=== PATIENT | female | born 1950 | race Caucasian/White ===

== ENCOUNTER 2017-01-15 20:46 | Emergency (ER) | payer OTHER ==
[~2017-01-15] VITALS: Ht 157.5 cm; Wt 104.3 kg
[2017-01-15 20:48] VITALS: BP 158/79
[2017-01-15] MEDS ORDERED: HYDROmorphone PF 1 MG/ML DISP.SYRIN IM ONE (21:15)
[2017-01-15] MEDS ORDERED: CYCLOBENZAPRINE 10 MG TABLET. PO ONE (21:15)
[2017-01-15] MEDS ORDERED: KETOROLAC 30 MG/ML VIAL. IM ONE (21:15)
[2017-01-15] MEDS ORDERED: ONDANSETRON ODT 4 MG TAB.RAPDIS PO ONE (21:15)
[2017-01-15] MEDS ORDERED: HYDR-971 PO (21:19)
[2017-01-15] MEDS ORDERED: IBUP600T16 PO (21:19)
[2017-01-15] MEDS ORDERED: CYCL-331 PO (21:19)
--- NOTE | 2017-01-15 21:19 | PHYS DOC ---
Adult General Chief Complaint Chief Complaint: BACK INJURY HPI HPI Patient is a 66-year-old female who presents here today complaining of lower back pain. Patient reports that she fell stepping off the step stool and landed on her buttocks and now she's got lower back pain. Patient has a history of hypertension. Patient has any diabetes liver longer kidney or heart problems. Patient is allergic to codeine. Patient denies any head trauma or loss of consciousness. Patient has any weakness to her upper or lower extremities. Patient denies any numbness or paresthesias. Patient has a loss of bowel or bladder function. Patient reports that EMS arrived her house however she declined transfer. Patient reports that she has been and bleeding and was transferred here by private vehicle. Review of systems: Constitutional: Denies fever or chills Eyes: Denies change in visual acuity, redness, or eye pain HENT: Denies nasal congestion or sore throat All other review systems are negative except as documented in the history of present illness portion. Physical exam: Constitutional: Well developed, well nourished, no acute distress, non-toxic appearance. HENT: Normocephalic, atraumatic, bilateral external ears normal, oropharynx moist, no oral exudates, nose normal. Eyes: PERRLA, EOMI, conjunctiva normal, no discharge. Neck: Normal range of motion, no tenderness, supple, no stridor. Cardiovascular:Heart rate regular rhythm, Lungs & Thorax: Bilateral breath sounds clear to auscultation Abdomen: Bowel sounds normal, soft, no tenderness, no masses, no pulsatile masses. Skin: Warm, dry, no erythema, no rash. Back: Patient was tenderness palpation to her lower back. Patient has no point C -spine T-spine or L-spine tenderness. Patient has diffuse lower back discomfort. Patient is neurologically intact. Patient's alert awake oriented 3. Patient is a bleeding without discomfort. Extremities: No tenderness, no cyanosis, no clubbing, ROM intact, no edema. Neurologic: Alert and oriented X 3, normal motor function, normal sensory function, no focal deficits noted. Psychologic: Affect normal, judgement normal, mood normal. Lumbosacral spine x-ray: No evidence of acute fracture interpreted by COLLEEN Snell Assessment and plan This is a 58-year-old female who presents here today with lower back pain secondary to trauma and falling. Patient is clinically and hemodynamically stable. Patient has no evidence of neurological deficits. Patient's x-ray does not reveal any evidence of acute fracture. Patient will be discharged home with adequate analgesia. Patient was given a shot of Dilaudid Toradol and Flexeril here in the ER we'll be discharged home with Motrin and Lortab and Flexeril to assist her with her pain. Patient will be instructed to follow-up with her primary care physician in one to 2 days for reevaluation of her pain at the symptoms are not completely resolved. Current Medications Current Medications Current Medications Medications (Trade) Dose Ordered Sig/Eli Start Time Stop Time Status Last Admin Dose Admin Cyclobenzaprine HCl (Flexeril) 10 mg 1X ONCE 01/15/17 21:15 01/15/17 21:16 Hydromorphone HCl (Dilaudid) 1 mg 1X ONCE 01/15/17 21:15 01/15/17 21:16 Ketorolac Tromethamine (Toradol) 30 mg 1X ONCE 01/15/17 21:15 01/15/17 21:16 Ondansetron HCl (Zofran Odt) 4 mg 1X ONCE 01/15/17 21:15 01/15/17 21:16 Allergies Allergies Allergies Coded Allergies Type Severity Reaction Last Updated Verified codeine Allergy Unknown 01/15/17 Yes EKG EKG [] Radiology/Procedures Radiology/Procedures [] Course & Med Decision Making Course & Med Decision Making Pertinent Labs and Imaging studies reviewed. (See chart for details) [] Dragon Disclaimer Dragon Disclaimer This chart was dictated in whole or in part using Voice Recognition software in a busy, high-work load, and often noisy Emergency Department environment. It may contain unintended and wholly unrecognized errors or omissions. Departure Departure: Impression: Primary Impression: Low back pain Disposition: HOME, SELF-CARE Condition: IMPROVED Referrals: FLEX STEIN MD (PCP) Patient Instructions: Low Back Sprain with Rehab-[facility], Lumbosacral Strain Scripts Hydrocodone Bit/Acetaminophen (NORCO 5-325 TABLET) 1 Each Tablet 1 TAB PO PRN Q6HRS Y for PAIN, #12 TAB 0 Refills Prov: KEYUR MONTENEGRO MD 01/15/17 Ibuprofen (IBUPROFEN) 600 Mg Tablet 600 MG PO QID Y for PAIN, #20 Prov: KEYUR MONTENEGRO MD 01/15/17 Cyclobenzaprine Hcl (CYCLOBENZAPRINE HCL) 10 Mg Tablet 1 TAB PO TID, #30 TAB Prov: KEYUR MONTENEGRO MD 01/15/17 KEYUR MONTENEGRO MD Jan 15, 2017 21:19
--- NOTE | 2017-01-16 10:11 | RAD ---
EXAM: Lumbar spine, 5 views.. HISTORY: Pain. COMPARISON: None. FINDINGS: Frontal, lateral, bilateral oblique and coned sacral views of the lumbar spine are obtained. There is minimal lumbar dextroscoliosis. There is minimal retrolisthesis of L5 on S1. There is an inferior endplate compression deformity at L1, of uncertain chronicity. There is degenerative endplate remodeling with disc space narrowing and facet arthropathy at all levels. IMPRESSION: 1. Mild inferior endplate compression deformity at L1, of uncertain chronicity. Correlate for point tenderness in this location. 2. Multilevel degenerative change throughout the lumbar spine.
== END 2017-01-15 20:55 | disposition home or self-care (01) ==
LOC: ER 20:46
DX: M54.5 Low back pain (principal); I10 Essential (primary) hypertension; Z88.5 Allergy status to narcotic agent; W19.XXXA Unspecified fall, initial encounter; Y93.89 Activity, other specified; Y99.8 Other external cause status; Y92.89 Other specified places as the place of occurrence of the external cause
CPT/HCPCS: 72110; 96372; 99284; J1170; J1885; Q0162

== ENCOUNTER → 2019-02-25 | Outpatient (CLI) | payer OTHER ==
[~2019-02-25] MED LIST: AMIO200T4 PO; APIX5TAB3 PO; ATOR20TA PO; CYCL-331 PO; DILT240C2 PO; HYDR-3165 PO; IBUP600T16 PO; LOSA50TA86 PO; SERT100T PO
--- NOTE | 2019-02-25 09:26 | CARD ---
MR#: [id number] Date of Study: 02/25/2019 Ordering Physician: HEATHER NUÑEZ, Referring Physician: HEATHER NUÑEZ, Tech: Janet Ruiz APPROVED REPORT EXAM: Two-dimensional and M-mode echocardiogram with Doppler and color Doppler. Other Information Quality : AverageHR: 63bpm Technically limited study due to body habitus. INDICATION Atrial Fibrillation Permanent atrial fibrillation RISK FACTORS Hypertension Hyperlipidemia 2D DIMENSIONS RVDd2.9 (2.9-3.5cm)Left Atrium(2D)4.5 (1.6-4.0cm) IVSd1.1 (0.7-1.1cm)Aortic Root(2D)3.0 (2.0-3.7cm) LVDd4.4 (3.9-5.9cm)LVOT Diameter2.1 (1.8-2.4cm) PWd0.9 (0.7-1.1cm)LVDs3.0 (2.5-4.0cm) FS (%) 30.2 %SV49.3 ml LVEF(%)57.7 (>50%) Aortic Valve AoV Peak Carlos.131.6cm/sAoV VTI29.8cm AO Peak GR.6.9mmHgLVOT Peak Carlos.96.9cm/s LVOT VTI 23.99cmAO Mean GR.4mmHg CHIKI (VMAX)2.83mh2YVO (VTI)2.85cm2 Mitral Valve MV E Wcbsaqbb975.0cm/sMV DECEL [id number] MV A Uphnpqwx51.8cm/sE/A Ratio6.1 Pulmonary Valve PV Peak Fdamdbcw24.0cm/sPV Peak Grad.4mmHg Tricuspid Valve TR P. Zhtjzyky500tn/sRAP TNQLKXZP1lnLa TR Peak Gr.37ygPoHMVT89vfYy Pulmonary Vein S1 Fqasazhl56.8cm/sD2 Ciyrzgwr43.5cm/s LEFT VENTRICLE The left ventricle is normal size. There is borderline to mild concentric left ventricular hypertroph y. The left ventricular systolic function is normal and the ejection fraction is within normal range. The Ejection Fraction is 55-60%. Wall motion consistent with conduction abnormality. Otherwise jean-pierre l wall motion. Tissue Doppler imaging reveals abnormal left ventricular diastolic dysfunction. RIGHT VENTRICLE The right ventricle is normal size. There is normal right ventricular wall thickness. The right ventr icular systolic function is normal. ATRIA The left atrium is mildly dilated. The right atrium size is normal. The interatrial septum is intact with no evidence for an atrial septal defect or patent foramen ovale as noted on 2-D or Doppler imagi ng. AORTIC VALVE The aortic valve is normal in structure and function. Doppler and Color Flow revealed no significant aortic regurgitation. There is no significant aortic valvular stenosis. MITRAL VALVE The mitral valve is normal in structure and function. There is no evidence of mitral valve prolapse. There is no mitral valve stenosis. Doppler and Color Flow revealed no mitral valve regurgitation note d. TRICUSPID VALVE The tricuspid valve is normal in structure and function. Doppler and Color Flow revealed trace tricus pid regurgitation with an estimated PAP of 41 mmHg. There is no tricuspid valve stenosis. PULMONIC VALVE The pulmonic valve is not well visualized. Doppler and Color Flow revealed trace pulmonic valvular re gurgitation. There is no pulmonic valvular stenosis. GREAT VESSELS The aortic root is normal in size. The ascending aorta is normal in size. The IVC is dilated. PERICARDIAL EFFUSION There is no evidence of significant pericardial effusion. Critical Notification Critical Value: No <Conclusion> The left ventricular systolic function is normal and the ejection fraction is within normal range. Th e Ejection Fraction is 55-60%. Wall motion consistent with conduction abnormality. Otherwise normal wall motion. Doppler and Color Flow revealed trace tricuspid regurgitation with an estimated PAP of 41 mmHg. Signed by : Heather Nuñez, Electronically Approved : 02/25/2019 09:26:17
== END | disposition home or self-care (01) ==
LOC: ECHO 07:38
PROVIDERS: ATTEND Internal Medicine Cardiovascular Disease
DX: I11.9 Hypertensive heart disease without heart failure (principal); I48.21 Permanent atrial fibrillation
CPT/HCPCS: 93306

== ENCOUNTER → 2021-01-31 | Outpatient (CLI) | payer MEDICARE ==
[~2021-01-31] MED LIST changes: -AMIO200T4 PO; +AMIO200T6 PO
--- NOTE | 2021-01-31 14:51 | RAD ---
EXAM: 1. Unilateral digital diagnostic mammography, left. 2. Left breast ultrasound. HISTORY: Indeterminate findings on screening mammography. Additional imaging is requested. TECHNIQUE: Bilateral full field digital images were obtained in CC and MLO projections. Computer-aide d detection was applied. COMPARISON: 12/23/2020. COMPOSITION: C. The breasts are heterogeneously dense, which may obscure small masses. FINDINGS: The density of concern inferiorly and laterally on the left resolves to a parenchymal appea betty on spot compression. Elsewhere, secretory and scattered calcifications are benign. There is no suspicious mammographic finding. Sonographic evaluation of the left lower breast was performed. There is no suspicious sonographic fin ding. The mammographic finding may correspond with a focally dilated duct at the 4:00 position 4.5 cm from the nipple. Images of the left axilla reveal no suspicious lymph nodes. BI-RADS CATEGORY 2: Benign. RECOMMENDATION: 1. Routine screening mammography in one year. If mammography demonstrates dense breast tissue (heterogenously dense or extremely dense, category C or D), which could hide abnormalities, and if other risk factors for breast cancer have been identifi ed, supplemental screening tests that may be suggested by the ordering physician may be of benefit. D ense breast tissue, in and of itself, is a relatively common condition. Therefore, this information i s not provided to cause undue concern, but rather to raise awareness and to promote discussion with t he referring physician regarding the presence of other risk factors, in addition to dense breast tiss ue. The results of this mammography examination is provided to the patient and referring physician. T he patient should contact their referring physician if any questions or concerns exist regarding this report. PQRS compliance statement - Patient information was entered into a reminder system with a target due date for the next mammogram. "Our facility is accredited by the [employer] Mammography [employer]." Electronically signed by: Yo Jon MD (01/31/2021 2:48 PM) [facility]
--- NOTE | 2021-01-31 16:45 | RAD ---
EXAM: Cervical spine 6 views. HISTORY: Neck pain and right upper extremity radiculopathy. COMPARISON: None. FINDINGS: Cervical alignment is maintained. Degenerative disc disease is mild at C3-4 and moderate fr om C5 through C7. No fractures are identified. There is no prevertebral soft tissue swelling. On the left, neural foraminal stenosis is moderate to severe at C6-7 and mild at C3-4, mostly from fa cet osteoarthritis. On the right, neural foraminal stenosis is moderate at C2-3, moderate to severe at C3-4, and mild mor e inferiorly. This is mostly from facet osteoarthritis. IMPRESSION: 1. Bilateral neural foraminal stenosis is moderate to severe on the right at C3-4 and on the left at C6-7, and mild to moderate elsewhere as above. 2. Degenerative disc disease is moderate from C5 through C7 and mild at C3-4. Electronically signed by: Yo Jon MD (01/31/2021 4:43 PM) [id number]
== END ==
LOC: MAMMO 12:46
PROVIDERS: ATTEND Family Medicine
DX: R92.2 Inconclusive mammogram (principal); M50.31 Other cervical disc degeneration, high cervical region; M48.02 Spinal stenosis, cervical region; M47.812 Spondylosis without myelopathy or radiculopathy, cervical region
CPT/HCPCS: 72050; 76641; 77065